=== PATIENT | female | born 1935 | race Caucasian/White ===

== ENCOUNTER 2017-09-12 14:28 | Emergency (ER) | payer OTHER ==
[~2017-09-12 14:28] MED LIST: ALD25 PO; ALDACTONE25 MG PO; B 6; COR6 PO; FISH OIL; FLUTICASON0.05 MG/Ac; GERITOL; GLU850 PO; LASIX20 MG PO; NITROGLYCERIN TD; NITROSTAT0.4 MG SL; PEPCID40 MG PO; PLA75 PO; PRO40 PO; VITAMIN E; ZES5 PO
[2017-09-12 17:09] VITALS: BP 131/66
== END 2017-09-12 17:09 | disposition home or self-care (01) ==
LOC: ED 14:28
DX: S22.41XA Multiple fractures of ribs, right side, initial encounter for closed fracture (principal); I11.0 Hypertensive heart disease with heart failure; I50.9 Heart failure, unspecified; I25.10 Atherosclerotic heart disease of native coronary artery without angina pectoris; I42.9 Cardiomyopathy, unspecified; K21.9 Gastro-esophageal reflux disease without esophagitis; E78.5 Hyperlipidemia, unspecified; M81.0 Age-related osteoporosis without current pathological fracture; G89.29 Other chronic pain; E11.9 Type 2 diabetes mellitus without complications; Z96.643 Presence of artificial hip joint, bilateral; Z87.19 Personal history of other diseases of the digestive system; Z88.6 Allergy status to analgesic agent; W01.0XXA Fall on same level from slipping, tripping and stumbling without subsequent striking against object, initial encounter; Y93.89 Activity, other specified; Y92.89 Other specified places as the place of occurrence of the external cause; Y99.8 Other external cause status

== ENCOUNTER 2017-10-25 08:11 | Inpatient (IN) | payer SELFPAY ==
[~2017-10-25] VITALS: Ht 154.9 cm; Wt 38.5 kg
[2017-10-25 08:15] VITALS: Ht 154.9 cm; Wt 38.5 kg
[2017-10-25 08:39] LABS: BASOPHIL % 1.5 % (0-2); PLATELET COUNT 257 x10^3mcL (130-400); RED CELL DISTRIBUTION WIDTH 14.2 % (11.5-14.5)
[2017-10-25 09:35] LABS: microscopic required? YES; urine erythrocyte TRACE (NEGATIVE)
[2017-10-25 09:42] LABS: ALKALINE PHOSPHATASE 121 U/L (46-116); ALT/SGPT 38 U/L (14-59); AST/SGOT 37 U/L (15-37); BILIRUBIN TOTAL 0.57 mg/dL (0.20-1.00); CARBON DIOXIDE 27.8 mmol/L (21-32); CHLORIDE SERUM 107 mmol/L (98-107); CHOLESTEROL 194 mg/dL (<200); CREATININE SERUM 0.7 mg/dL (0.6-1.0); GLUCOSE SERUM 129 mg/dL (74-106); POTASSIUM SERUM 4.5 mmol/L (3.5-5.1); SODIUM SERUM 143 mmol/L (136-145); TOTAL PROTEIN, SERUM 6.9 g/dL (6.4-8.2)
[2017-10-25 10:28] LABS: CHOLESTEROL/HDL RATIO 1.8; MAGNESIUM 2.4 mg/dL (1.8-2.4); PHOSPHOROUS 3.3 mg/dL (2.5-4.9)
[2017-10-25] MEDS ORDERED: TRAMADOL HCL50 MG PO (10:37)
[2017-10-25] MEDS ORDERED: OSCD PO (10:38)
[2017-10-25] MEDS ORDERED: CARVEDILOL3.125 M1 PO (10:39)
[2017-10-25] MEDS ORDERED: LEXAPRO5 M1 PO (10:39)
[2017-10-25] MEDS ORDERED: IBUPROFEN400 MG PO (10:39)
[2017-10-25 10:59] VITALS: BP 154/83
[2017-10-25 17:20] VITALS: BP 133/72
[2017-10-25 21:03] VITALS: BP 126/65
[2017-10-26 02:50] LABS: BASOPHIL % 1.1 % (0-2); PLATELET COUNT 240 x10^3mcL (130-400)
[2017-10-26 02:57] LABS: CALCIUM 8.6 mg/dL (8.5-10.1); CARBON DIOXIDE 25.8 mmol/L (21-32); CHLORIDE SERUM 108 mmol/L (98-107); CREATININE SERUM 0.7 mg/dL (0.6-1.0); GLUCOSE SERUM 108 mg/dL (74-106); PHOSPHOROUS 3.6 mg/dL (2.5-4.9); POTASSIUM SERUM 3.3 mmol/L (3.5-5.1); SODIUM SERUM 143 mmol/L (136-145)
[2017-10-26 03:01] LABS: RED CELL DISTRIBUTION WIDTH 14.7 % (11.5-14.5)
[2017-10-26 06:20] VITALS: BP 108/61
[2017-10-26 10:54] VITALS: BP 131/78
[2017-10-26 13:17] VITALS: BP 129/54
[2017-10-26 16:36] VITALS: BP 94/56
[2017-10-26 22:28] VITALS: BP 126/56
[2017-10-27 06:35] VITALS: BP 118/58
[2017-10-27 09:52] VITALS: BP 112/53
[2017-10-27] MEDS ORDERED: ZES10 PO (13:09)
[2017-10-27 13:10] VITALS: BP 126/68
[2017-10-27 13:11] VITALS: BP 126/68
[2017-10-27] MEDS ORDERED: PLA75 PO (15:27)
== END 2017-10-27 16:32 | disposition home or self-care (01) | DRG 305 ==
LOC: ED 08:11 → DU 10:13 → CMPBEDREQ 10:23 → DU 10:57 → MU 10-27 09:26
PROVIDERS: Family Medicine; Specialist
DX: I16.0 Hypertensive urgency (principal); I42.0 Dilated cardiomyopathy; G90.8 Other disorders of autonomic nervous system; Z88.6 Allergy status to analgesic agent; W07.XXXA Fall from chair, initial encounter; Y93.89 Activity, other specified; Y92.89 Other specified places as the place of occurrence of the external cause; Y99.8 Other external cause status; I11.0 Hypertensive heart disease with heart failure; I50.9 Heart failure, unspecified; E11.9 Type 2 diabetes mellitus without complications; K21.9 Gastro-esophageal reflux disease without esophagitis; E11.21 Type 2 diabetes mellitus with diabetic nephropathy; E11.65 Type 2 diabetes mellitus with hyperglycemia; E78.5 Hyperlipidemia, unspecified; M81.0 Age-related osteoporosis without current pathological fracture; Z96.643 Presence of artificial hip joint, bilateral; G89.29 Other chronic pain; M54.9 Dorsalgia, unspecified; Z90.49 Acquired absence of other specified parts of digestive tract; I25.10 Atherosclerotic heart disease of native coronary artery without angina pectoris; I44.7 Left bundle-branch block, unspecified; Z80.3 Family history of malignant neoplasm of breast; Z80.0 Family history of malignant neoplasm of digestive organs; E87.6 Hypokalemia; F32.9 Major depressive disorder, single episode, unspecified
CPT/HCPCS: 82962; 83880; 94150; G0480; J1644; J1940; Q0092

== ENCOUNTER 2017-11-11 13:21 | Inpatient (IN) | payer OTHER ==
[~2017-11-11] VITALS: Ht 154.9 cm; Wt 43.7 kg
[~2017-11-11 13:21] MED LIST changes: +CARVEDILOL3.125 M1 PO; +IBUPROFEN400 MG PO; +OSCD PO; +TRAMADOL HCL50 MG PO; +ZES10 PO
[2017-11-11 13:33] VITALS: Ht 154.9 cm; Wt 43.7 kg
[2017-11-11 14:12] LABS: BASOPHIL % 1.2 % (0-2); PLATELET COUNT 298 x10^3mcL (130-400)
[2017-11-11 14:13] LABS: RED CELL DISTRIBUTION WIDTH 14.6 % (11.5-14.5)
[2017-11-11 14:23] LABS: CALCIUM 8.7 mg/dL (8.5-10.1); CARBON DIOXIDE 26.1 mmol/L (21-32); CHLORIDE SERUM 105 mmol/L (98-107); CREATININE SERUM 0.8 mg/dL (0.6-1.0); GLUCOSE SERUM 164 mg/dL (74-106); POTASSIUM SERUM 3.8 mmol/L (3.5-5.1); SODIUM SERUM 140 mmol/L (136-145)
[2017-11-11 14:28] LABS: ALKALINE PHOSPHATASE 118 U/L (46-116); ALT/SGPT 34 U/L (14-59); AST/SGOT 36 U/L (15-37); BILIRUBIN TOTAL 0.87 mg/dL (0.20-1.00); TOTAL PROTEIN, SERUM 6.9 g/dL (6.4-8.2)
[2017-11-11 14:29] LABS: ALBUMIN 2.9 g/dL (3.4-5.0)
[2017-11-11 15:45] LABS: MAGNESIUM 2.2 mg/dL (1.8-2.4)
[2017-11-11 15:47] LABS: CHOLESTEROL/HDL RATIO 1.9
[2017-11-11 15:49] LABS: T3 TOTAL 0.87 ng/mL
[2017-11-11 15:58] LABS: FREE T4 1.19 ng/dL (0.76-1.46); FREE THYROXINE INDEX 2.3 ug/dL (1.4-4.5)
[2017-11-11 16:32] VITALS: BP 129/64
[2017-11-11 19:30] VITALS: BP 104/62
[2017-11-12 00:21] LABS: UA SPECIFIC GRAVITY 1.015 (1.005-1.035); microscopic required? YES; urine erythrocyte TRACE (NEGATIVE)
[2017-11-12 05:29] VITALS: BP 120/54
[2017-11-12 06:26] LABS: BASOPHIL % 0.7 % (0-2); PLATELET COUNT 233 x10^3mcL (130-400); RED CELL DISTRIBUTION WIDTH 14.5 % (11.5-14.5)
[2017-11-12 06:58] LABS: CALCIUM 8.4 mg/dL (8.5-10.1); CARBON DIOXIDE 24.2 mmol/L (21-32); CHLORIDE SERUM 109 mmol/L (98-107); CREATININE SERUM 0.6 mg/dL (0.6-1.0); GLUCOSE SERUM 117 mg/dL (74-106); POTASSIUM SERUM 3.7 mmol/L (3.5-5.1); SODIUM SERUM 142 mmol/L (136-145)
[2017-11-12 09:51] VITALS: BP 123/62
[2017-11-12 17:16] VITALS: BP 134/64
[2017-11-12 21:38] VITALS: BP 116/57
[2017-11-13 04:31] VITALS: BP 124/58
[2017-11-13 06:31] LABS: BASOPHIL % 0.5 % (0-2); PLATELET COUNT 234 x10^3mcL (130-400)
[2017-11-13 06:34] LABS: RED CELL DISTRIBUTION WIDTH 14.6 % (11.5-14.5)
[2017-11-13 06:50] LABS: CALCIUM 8.2 mg/dL (8.5-10.1); CARBON DIOXIDE 24.5 mmol/L (21-32); CHLORIDE SERUM 109 mmol/L (98-107); CREATININE SERUM 0.7 mg/dL (0.6-1.0); GLUCOSE SERUM 108 mg/dL (74-106); SODIUM SERUM 141 mmol/L (136-145)
[2017-11-13 16:51] VITALS: BP 119/64
[2017-11-13 21:41] VITALS: BP 121/60
[2017-11-14 05:00] VITALS: BP 117/67
[2017-11-14 06:23] LABS: BASOPHIL % 0.4 % (0-2); PLATELET COUNT 256 x10^3mcL (130-400); RED CELL DISTRIBUTION WIDTH 14.4 % (11.5-14.5)
[2017-11-14 06:39] LABS: CALCIUM 8.6 mg/dL (8.5-10.1); CARBON DIOXIDE 28.4 mmol/L (21-32); CHLORIDE SERUM 105 mmol/L (98-107); CREATININE SERUM 0.7 mg/dL (0.6-1.0); GLUCOSE SERUM 138 mg/dL (74-106); POTASSIUM SERUM 3.9 mmol/L (3.5-5.1); SODIUM SERUM 140 mmol/L (136-145)
[2017-11-14 09:11] VITALS: BP 108/54
[2017-11-14] MEDS ORDERED: COL100 PO (10:52)
[2017-11-14 14:58] VITALS: BP 108/54
[2017-11-14 17:03] VITALS: BP 131/69
== END 2017-11-14 17:21 | disposition home or self-care (01) | DRG 347 ==
LOC: ED 13:21 → DU 15:10 → MU 15:10 → DU 16:18 → MU 11-12 10:49
PROVIDERS: Emergency Medicine; Family Medicine; Surgery
PROC: 0T9B70Z Drainage of Bladder with Drainage Device, Via Natural or Artificial Opening (ICD-10-PCS; 2017-11-11)
PROC: 0DBP7ZZ Excision of Rectum, Via Natural or Artificial Opening (ICD-10-PCS; principal; 2017-11-13 08:00)
DX: K62.3 Rectal prolapse (principal); N17.0 Acute kidney failure with tubular necrosis; E44.0 Moderate protein-calorie malnutrition; Z68.1 Body mass index [BMI] 19.9 or less, adult; I13.0 Hypertensive heart and chronic kidney disease with heart failure and stage 1 through stage 4 chronic kidney disease, or unspecified chronic kidney disease; N13.30 Unspecified hydronephrosis; F32.9 Major depressive disorder, single episode, unspecified; I50.9 Heart failure, unspecified; I25.10 Atherosclerotic heart disease of native coronary artery without angina pectoris; K21.9 Gastro-esophageal reflux disease without esophagitis; E11.21 Type 2 diabetes mellitus with diabetic nephropathy; E78.5 Hyperlipidemia, unspecified; M81.0 Age-related osteoporosis without current pathological fracture; G89.29 Other chronic pain; M54.9 Dorsalgia, unspecified; Z96.643 Presence of artificial hip joint, bilateral; E11.65 Type 2 diabetes mellitus with hyperglycemia; Z53.29 Procedure and treatment not carried out because of patient's decision for other reasons; N18.9 Chronic kidney disease, unspecified; D25.9 Leiomyoma of uterus, unspecified; K44.9 Diaphragmatic hernia without obstruction or gangrene; K57.30 Diverticulosis of large intestine without perforation or abscess without bleeding; Z88.6 Allergy status to analgesic agent; Z80.3 Family history of malignant neoplasm of breast; Z80.0 Family history of malignant neoplasm of digestive organs
CPT/HCPCS: 82962; 83880; 84439; 94150; J0690; J2001; J2175; J2250; J3010; J3490; J7030; Q0092; Q9966; Q9967

== ENCOUNTER 2017-11-17 21:16 | Inpatient (IN) | payer OTHER ==
[~2017-11-17] VITALS: Ht 154.9 cm; Wt 44.2 kg
[~2017-11-17 21:16] MED LIST changes: +COL100 PO
[2017-11-17 23:30] LABS: BASOPHIL % 0.4 % (0-2); PLATELET COUNT 273 x10^3mcL (130-400); RED CELL DISTRIBUTION WIDTH 14.1 % (11.5-14.5)
[2017-11-17 23:39] LABS: CALCIUM 8.7 mg/dL (8.5-10.1); CARBON DIOXIDE 28.9 mmol/L (21-32); CHLORIDE SERUM 107 mmol/L (98-107); CREATININE SERUM 0.7 mg/dL (0.6-1.0); GLUCOSE SERUM 122 mg/dL (74-106); SODIUM SERUM 139 mmol/L (136-145)
[2017-11-17 23:47] LABS: ALKALINE PHOSPHATASE 121 U/L (46-116); ALT/SGPT 45 U/L (14-59); AST/SGOT 38 U/L (15-37); BILIRUBIN TOTAL 0.3 mg/dL (0.20-1.00); TOTAL PROTEIN, SERUM 6.7 g/dL (6.4-8.2)
[2017-11-18 00:48] LABS: UA SPECIFIC GRAVITY <=1.005 (1.005-1.035); microscopic required? YES; urine erythrocyte 2+ (NEGATIVE)
[2017-11-18 04:46] VITALS: BP 132/64
[2017-11-18] MEDS ORDERED: POTASSIUM CHLO20 ME1 PO (05:23)
[2017-11-18 06:21] LABS: PHOSPHOROUS 3.9 mg/dL (2.5-4.9)
[2017-11-18 06:28] LABS: FREE T4 1.22 ng/dL (0.76-1.46); FREE THYROXINE INDEX 3.2 ug/dL (1.4-4.5); T4(THYROXINE) 9.3 ug/dL (4.7-13.3)
[2017-11-18 06:45] LABS: T3 TOTAL 0.98 ng/mL
[2017-11-18 09:24] LABS: PLATELET COUNT 250 x10^3mcL (130-400); RED CELL DISTRIBUTION WIDTH 14.5 % (11.5-14.5)
[2017-11-18 09:27] VITALS: BP 113/52
[2017-11-18 09:50] LABS: CALCIUM 8.1 mg/dL (8.5-10.1); CARBON DIOXIDE 24.3 mmol/L (21-32); CHLORIDE SERUM 108 mmol/L (98-107); CREATININE SERUM 0.6 mg/dL (0.6-1.0); GLUCOSE SERUM 113 mg/dL (74-106); MAGNESIUM 1.9 mg/dL (1.8-2.4); POTASSIUM SERUM 3.9 mmol/L (3.5-5.1); SODIUM SERUM 140 mmol/L (136-145)
[2017-11-18 10:15] VITALS: Ht 154.9 cm; Wt 44.2 kg
[2017-11-18 12:44] VITALS: BP 113/52
[2017-11-18 13:15] VITALS: BP 145/65
[2017-11-18 17:37] VITALS: BP 117/66
[2017-11-18 20:49] VITALS: BP 106/54
[2017-11-19 06:14] VITALS: BP 115/60
[2017-11-19 06:34] LABS: BASOPHIL % 0.7 % (0-2); PLATELET COUNT 236 x10^3mcL (130-400); RED CELL DISTRIBUTION WIDTH 14.3 % (11.5-14.5)
[2017-11-19 06:46] LABS: CALCIUM 8.4 mg/dL (8.5-10.1); CARBON DIOXIDE 25.2 mmol/L (21-32); CHLORIDE SERUM 105 mmol/L (98-107); CREATININE SERUM 0.8 mg/dL (0.6-1.0); GLUCOSE SERUM 114 mg/dL (74-106); POTASSIUM SERUM 3.9 mmol/L (3.5-5.1); SODIUM SERUM 139 mmol/L (136-145)
[2017-11-19 09:09] VITALS: BP 111/56
[2017-11-19 12:58] VITALS: BP 121/69
[2017-11-19 16:41] VITALS: BP 106/56
[2017-11-19 21:49] VITALS: BP 116/54
[2017-11-20 05:33] VITALS: BP 112/49
[2017-11-20 07:30] LABS: CALCIUM 8.5 mg/dL (8.5-10.1); CARBON DIOXIDE 25.2 mmol/L (21-32); CHLORIDE SERUM 106 mmol/L (98-107); CREATININE SERUM 0.8 mg/dL (0.6-1.0); GLUCOSE SERUM 116 mg/dL (74-106); POTASSIUM SERUM 3.9 mmol/L (3.5-5.1); SODIUM SERUM 139 mmol/L (136-145)
[2017-11-20 07:36] LABS: BASOPHIL % 0.5 % (0-2); PLATELET COUNT 240 x10^3mcL (130-400); RED CELL DISTRIBUTION WIDTH 14.2 % (11.5-14.5)
[2017-11-20 09:44] VITALS: BP 104/50
[2017-11-20 14:11] VITALS: BP 137/63
[2017-11-20 17:28] VITALS: BP 143/75
[2017-11-20 21:32] VITALS: BP 138/63
[2017-11-21 05:23] VITALS: BP 143/65
[2017-11-21 06:47] LABS: BASOPHIL % 0.6 % (0-2); PLATELET COUNT 263 x10^3mcL (130-400); RED CELL DISTRIBUTION WIDTH 14.5 % (11.5-14.5)
[2017-11-21 06:52] LABS: CALCIUM 8.4 mg/dL (8.5-10.1); CARBON DIOXIDE 22.2 mmol/L (21-32); CHLORIDE SERUM 105 mmol/L (98-107); CREATININE SERUM 0.7 mg/dL (0.6-1.0); GLUCOSE SERUM 211 mg/dL (74-106); POTASSIUM SERUM 4.2 mmol/L (3.5-5.1); SODIUM SERUM 137 mmol/L (136-145)
[2017-11-21] MEDS ORDERED: LEVAQUIN750 MG PO (07:17)
[2017-11-21] MEDS ORDERED: CLEOCIN HCL300 MG PO (07:17)
[2017-11-21] MEDS ORDERED: LAC PO (07:18)
[2017-11-21] MEDS ORDERED: LEXAPRO20 MG PO (07:19)
[2017-11-21 09:50] VITALS: BP 143/65
[2017-11-21 09:55] VITALS: BP 122/60
[2017-11-21 13:56] VITALS: BP 117/63
[2017-11-21] MEDS ORDERED: LEXAPRO5 M1 PO (14:59)
== END 2017-11-21 19:26 | disposition home health service (06) | DRG 177 ==
LOC: ED 21:16 → DU 11-18 03:45 → EDBEDREQ 11-18 03:57 → DU 11-18 04:31
PROVIDERS: Emergency Medicine; Family Medicine Sports Medicine
DX: J69.0 Pneumonitis due to inhalation of food and vomit (principal); I50.43 Acute on chronic combined systolic (congestive) and diastolic (congestive) heart failure; N17.0 Acute kidney failure with tubular necrosis; I42.0 Dilated cardiomyopathy; E44.0 Moderate protein-calorie malnutrition; Z68.1 Body mass index [BMI] 19.9 or less, adult; K21.9 Gastro-esophageal reflux disease without esophagitis; E86.0 Dehydration; I11.0 Hypertensive heart disease with heart failure; F41.9 Anxiety disorder, unspecified; Z96.653 Presence of artificial knee joint, bilateral; Z53.29 Procedure and treatment not carried out because of patient's decision for other reasons; E11.65 Type 2 diabetes mellitus with hyperglycemia; I34.0 Nonrheumatic mitral (valve) insufficiency; K44.9 Diaphragmatic hernia without obstruction or gangrene; D25.9 Leiomyoma of uterus, unspecified; F32.9 Major depressive disorder, single episode, unspecified; M47.9 Spondylosis, unspecified; E11.9 Type 2 diabetes mellitus without complications; R31.9 Hematuria, unspecified; G89.29 Other chronic pain; Z90.49 Acquired absence of other specified parts of digestive tract; Z88.6 Allergy status to analgesic agent; Z80.3 Family history of malignant neoplasm of breast; Z80.0 Family history of malignant neoplasm of digestive organs
CPT/HCPCS: 82962; 83880; 84439; 94150; 97110-GP; 97116-GP; 97530-GP; J1885; J1956; J2405; J3490; J7030; J7040; J7620; J7626; Q0092

== ENCOUNTER 2018-02-09 14:56 | Emergency (ER) | payer OTHER ==
[~2018-02-09] VITALS: Ht 147.3 cm; Wt 41.0 kg
[~2018-02-09 14:56] MED LIST changes: +CLEOCIN HCL300 MG PO; +LAC PO; +LEVAQUIN750 MG PO; +LEXAPRO20 MG PO; +LEXAPRO5 M1 PO; +POTASSIUM CHLO20 ME1 PO
[2018-02-09 15:03] VITALS: Ht 147.3 cm; Wt 41.0 kg
[2018-02-09 15:56] LABS: BASOPHIL % 0.9 % (0-2); PLATELET COUNT 239 x10^3mcL (130-400); RED CELL DISTRIBUTION WIDTH 14.1 % (11.5-14.5)
[2018-02-09 16:02] LABS: CALCIUM 8.9 mg/dL (8.5-10.1); CARBON DIOXIDE 26.8 mmol/L (21-32); CHLORIDE SERUM 106 mmol/L (98-107); CREATININE SERUM 0.9 mg/dL (0.6-1.0); GLUCOSE SERUM 240 mg/dL (74-106); POTASSIUM SERUM 3.9 mmol/L (3.5-5.1); SODIUM SERUM 141 mmol/L (136-145)
[2018-02-09 18:58] VITALS: BP 138/85
== END 2018-02-09 18:56 | disposition home or self-care (01) ==
LOC: ED 14:56
PROVIDERS: Emergency Medicine
DX: S06.890A Other specified intracranial injury without loss of consciousness, initial encounter (principal); I11.0 Hypertensive heart disease with heart failure; I50.9 Heart failure, unspecified; K21.9 Gastro-esophageal reflux disease without esophagitis; E11.21 Type 2 diabetes mellitus with diabetic nephropathy; M81.0 Age-related osteoporosis without current pathological fracture; Z88.8 Allergy status to other drugs, medicaments and biological substances; Z90.49 Acquired absence of other specified parts of digestive tract; W18.39XA Other fall on same level, initial encounter; Y93.89 Activity, other specified; Y92.89 Other specified places as the place of occurrence of the external cause; Y99.8 Other external cause status
CPT/HCPCS: 36415; 83880; Q0092

== ENCOUNTER 2018-06-27 21:05 | Inpatient (IN) | payer OTHER ==
[~2018-06-27] VITALS: Ht 147.3 cm; Wt 40.4 kg
[2018-06-27 21:08] VITALS: Ht 147.3 cm; Wt 40.4 kg
[2018-06-27 22:04] LABS: BASOPHIL % 0.7 % (0-2); PLATELET COUNT 204 x10^3mcL (130-400); RED CELL DISTRIBUTION WIDTH 14.4 % (11.5-14.5)
[2018-06-27 22:13] LABS: CALCIUM 8.6 mg/dL (8.5-10.1); CHLORIDE SERUM 107 mmol/L (98-107); CREATININE SERUM 0.6 mg/dL (0.6-1.0); GLUCOSE SERUM 153 mg/dL (74-106); POTASSIUM SERUM 3.9 mmol/L (3.5-5.1); SODIUM SERUM 139 mmol/L (136-145)
[2018-06-27 22:17] LABS: ALKALINE PHOSPHATASE 105 U/L (46-116); ALT/SGPT 34 U/L (14-59); AST/SGOT 29 U/L (15-37); BILIRUBIN TOTAL 0.2 mg/dL (0.20-1.00); TOTAL PROTEIN, SERUM 6.3 g/dL (6.4-8.2)
[2018-06-27 22:18] LABS: ALBUMIN 2.9 g/dL (3.4-5.0)
[2018-06-27 23:40] LABS: AMPHETAMINE QUAL UR NONE DETECTED (See below)
[2018-06-28 00:19] LABS: PHOSPHOROUS 3.8 mg/dL (2.5-4.9)
[2018-06-28 00:22] LABS: CHOLESTEROL/HDL RATIO 2.3
[2018-06-28 00:24] LABS: T3 TOTAL 0.95 ng/mL
[2018-06-28 00:29] LABS: FREE T4 1.05 ng/dL (0.76-1.46); FREE THYROXINE INDEX 2.6 ug/dL (1.4-4.5); T4(THYROXINE) 7.3 ug/dL (4.7-13.3)
[2018-06-28 00:54] VITALS: BP 134/62
[2018-06-28 01:54] LABS: microscopic required? NO
[2018-06-28 02:05] LABS: urine erythrocyte NEGATIVE (NEGATIVE)
[2018-06-28 03:35] VITALS: BP 134/62
[2018-06-28 04:57] VITALS: BP 126/55
[2018-06-28 07:11] LABS: CALCIUM 8.7 mg/dL (8.5-10.1); CARBON DIOXIDE 28.1 mmol/L (21-32); CHLORIDE SERUM 108 mmol/L (98-107); CREATININE SERUM 0.7 mg/dL (0.6-1.0); GLUCOSE SERUM 113 mg/dL (74-106); POTASSIUM SERUM 4.1 mmol/L (3.5-5.1); SODIUM SERUM 142 mmol/L (136-145)
[2018-06-28 07:26] LABS: BASOPHIL % 0.6 % (0-2); PLATELET COUNT 209 x10^3mcL (130-400); RED CELL DISTRIBUTION WIDTH 14.4 % (11.5-14.5)
[2018-06-28 09:18] VITALS: BP 131/57
[2018-06-28 12:48] VITALS: BP 143/77
[2018-06-28 13:49] VITALS: BP 143/77
== END 2018-06-28 15:20 | disposition home or self-care (01) | DRG 73 ==
LOC: ED 21:05 → MU 23:11 → DU 06-28 04:15
PROVIDERS: Emergency Medicine; Family Medicine
DX: G90.9 Disorder of the autonomic nervous system, unspecified (principal); N17.0 Acute kidney failure with tubular necrosis; D68.59 Other primary thrombophilia; E44.0 Moderate protein-calorie malnutrition; I87.2 Venous insufficiency (chronic) (peripheral); E11.65 Type 2 diabetes mellitus with hyperglycemia; I10 Essential (primary) hypertension; I25.2 Old myocardial infarction; F20.9 Schizophrenia, unspecified; Z86.73 Personal history of transient ischemic attack (TIA), and cerebral infarction without residual deficits
CPT/HCPCS: 82962; 83880; 84439; 94150; J0696; J1940; J2405; J3010; J7030; J7620; Q0092

== ENCOUNTER 2019-03-28 13:44 | Emergency (ER) | payer OTHER ==
[~2019-03-28] VITALS: Ht 147.3 cm; Wt 38.6 kg
[2019-03-28 13:49] VITALS: Ht 147.3 cm; Wt 38.6 kg
[2019-03-28 15:27] LABS: CALCIUM 8.9 mg/dL (8.5-10.1); CARBON DIOXIDE 22.8 mmol/L (21-32); CHLORIDE SERUM 112 mmol/L (98-107); CREATININE SERUM 0.7 mg/dL (0.6-1.0); GLUCOSE SERUM 134 mg/dL (74-106); POTASSIUM SERUM 3.6 mmol/L (3.5-5.1); SODIUM SERUM 146 mmol/L (136-145)
[2019-03-28 15:30] LABS: BASOPHIL % 0.7 % (0-2); PLATELET COUNT 266 x10^3mcL (130-400); RED CELL DISTRIBUTION WIDTH 14.4 % (11.5-14.5)
[2019-03-28 15:35] LABS: ALKALINE PHOSPHATASE 108 U/L (46-116); ALT/SGPT 20 U/L (14-59); AST/SGOT 14 U/L (15-37); BILIRUBIN TOTAL 0.17 mg/dL (0.20-1.00)
[2019-03-28 15:42] LABS: ALBUMIN 2.6 g/dL (3.4-5.0)
[2019-03-28 17:24] VITALS: BP 145/61
== END 2019-03-28 17:47 | disposition short-term general hospital (02) ==
LOC: ED 13:44
PROVIDERS: Emergency Medicine
DX: S06.5X9A Traumatic subdural hemorrhage with loss of consciousness of unspecified duration, initial encounter (principal); S39.012A Strain of muscle, fascia and tendon of lower back, initial encounter; I11.0 Hypertensive heart disease with heart failure; I50.9 Heart failure, unspecified; E11.9 Type 2 diabetes mellitus without complications; Z98.890 Other specified postprocedural states; W19.XXXA Unspecified fall, initial encounter; Y93.89 Activity, other specified; Y92.89 Other specified places as the place of occurrence of the external cause; Y99.8 Other external cause status
CPT/HCPCS: J2270; J2405; Q0092

== ENCOUNTER 2019-08-21 15:51 | Emergency (ER) | payer OTHER ==
[2019-08-21 17:02] LABS: BASOPHIL % 0.5 % (0-2); PLATELET COUNT 321 x10^3mcL (130-400)
[2019-08-21 17:03] LABS: RED CELL DISTRIBUTION WIDTH 15.4 % (11.5-14.5)
[2019-08-21 17:34] LABS: CALCIUM 8.8 mg/dL (8.5-10.1); CARBON DIOXIDE 28.6 mmol/L (21-32); CHLORIDE SERUM 106 mmol/L (98-107); CREATININE SERUM 0.7 mg/dL (0.6-1.0); GLUCOSE SERUM 115 mg/dL (74-106); POTASSIUM SERUM 3.7 mmol/L (3.5-5.1); SODIUM SERUM 141 mmol/L (136-145)
[2019-08-21 17:38] LABS: ALKALINE PHOSPHATASE 91 U/L (46-116); ALT/SGPT 26 U/L (14-59); AST/SGOT 21 U/L (15-37); BILIRUBIN TOTAL 0.3 mg/dL (0.20-1.00); TOTAL PROTEIN, SERUM 6.8 g/dL (6.4-8.2)
[2019-08-21 18:36] VITALS: BP 127/67
== END 2019-08-21 18:36 | disposition home or self-care (01) ==
LOC: ED 15:51
PROVIDERS: Emergency Medicine
DX: S00.83XA Contusion of other part of head, initial encounter (principal); S09.8XXA Other specified injuries of head, initial encounter; I50.9 Heart failure, unspecified; I11.0 Hypertensive heart disease with heart failure; E11.9 Type 2 diabetes mellitus without complications; K21.9 Gastro-esophageal reflux disease without esophagitis; M81.0 Age-related osteoporosis without current pathological fracture; W18.30XA Fall on same level, unspecified, initial encounter; Y93.89 Activity, other specified; Y92.89 Other specified places as the place of occurrence of the external cause; Y99.8 Other external cause status
CPT/HCPCS: 36415; Q0092

== ENCOUNTER 2019-10-18 19:18 | Emergency (ER) | payer OTHER ==
[~2019-10-18] VITALS: Ht 147.3 cm; Wt 40.8 kg
[2019-10-18 19:42] VITALS: Ht 147.3 cm; Wt 40.8 kg
[2019-10-18 20:34] LABS: BASOPHIL % 0.5 % (0-2); PLATELET COUNT 229 x10^3mcL (130-400); RED CELL DISTRIBUTION WIDTH 14.8 % (11.5-14.5)
[2019-10-18 20:47] LABS: CALCIUM 8.5 mg/dL (8.5-10.1); CARBON DIOXIDE 24.4 mmol/L (21-32); CHLORIDE SERUM 110 mmol/L (98-107); CREATININE SERUM 0.7 mg/dL (0.6-1.0); GLUCOSE SERUM 114 mg/dL (74-106); POTASSIUM SERUM 3.5 mmol/L (3.5-5.1); SODIUM SERUM 144 mmol/L (136-145)
[2019-10-18 20:52] LABS: ALKALINE PHOSPHATASE 85 U/L (46-116); ALT/SGPT 23 U/L (14-59); AST/SGOT 20 U/L (15-37); BILIRUBIN TOTAL 0.37 mg/dL (0.20-1.00); TOTAL PROTEIN, SERUM 6.5 g/dL (6.4-8.2)
[2019-10-18 23:57] VITALS: BP 132/81
== END 2019-10-18 23:57 | disposition home or self-care (01) ==
LOC: ED 19:18
PROVIDERS: Emergency Medicine
DX: R51 Headache (principal); R53.1 Weakness; M54.5 Low back pain; Z88.6 Allergy status to analgesic agent; I50.9 Heart failure, unspecified; I11.0 Hypertensive heart disease with heart failure; E11.9 Type 2 diabetes mellitus without complications; K21.9 Gastro-esophageal reflux disease without esophagitis; E11.21 Type 2 diabetes mellitus with diabetic nephropathy; M81.0 Age-related osteoporosis without current pathological fracture; Z90.49 Acquired absence of other specified parts of digestive tract; Z98.890 Other specified postprocedural states
CPT/HCPCS: 36415; Q0092

== ENCOUNTER 2020-01-13 14:25 | Inpatient (IN) | payer OTHER, SELFPAY ==
[~2020-01-13] VITALS: Ht 162.6 cm; Wt 43.5 kg
[~2020-01-13 14:25] MED LIST changes: +L20 PO
[2020-01-13 14:28] VITALS: Ht 162.6 cm; Wt 43.5 kg
[2020-01-13 15:06] LABS: BASOPHIL % 0.6 % (0-2); PLATELET COUNT 283 x10^3mcL (130-400); RED CELL DISTRIBUTION WIDTH 13.7 % (11.5-14.5)
[2020-01-13 15:41] LABS: CALCIUM 8.6 mg/dL (8.5-10.1); CARBON DIOXIDE 22.8 mmol/L (21-32); CHLORIDE SERUM 104 mmol/L (98-107); CREATININE SERUM 0.9 mg/dL (0.6-1.0); GLUCOSE SERUM 195 mg/dL (74-106); POTASSIUM SERUM 3.8 mmol/L (3.5-5.1); SODIUM SERUM 136 mmol/L (136-145)
[2020-01-13 15:52] LABS: T3 TOTAL 0.92 ng/mL
[2020-01-13 15:56] LABS: ALKALINE PHOSPHATASE 82 U/L (46-116); ALT/SGPT 19 U/L (14-59); AST/SGOT 20 U/L (15-37); BILIRUBIN TOTAL 0.19 mg/dL (0.20-1.00); CHOLESTEROL 197 mg/dL (<200); CHOLESTEROL/HDL RATIO 3.3; HDL CHOLESTEROL 60 mg/dL (40-60); LIPASE 134 IU/L (73-393); TRIGLYCERIDES 137 mg/dL (<150)
[2020-01-13 16:02] LABS: ALBUMIN 2.9 g/dL (3.4-5.0)
[2020-01-13 16:23] LABS: microscopic required? NO
[2020-01-13 16:24] LABS: FREE T4 1.12 ng/dL (0.76-1.46); FREE THYROXINE INDEX 2.4 ug/dL (1.4-4.5); T4(THYROXINE) 6.9 ug/dL (4.7-13.3)
[2020-01-13 16:28] LABS: LACTIC DEHYDROGENASE (LDH) 208 U/L (100-190)
[2020-01-13 16:29] LABS: urine erythrocyte NEGATIVE (NEGATIVE)
[2020-01-13 16:48] LABS: C REACTIVE PROTEIN < 0.2 mg/dL (<=0.9)
[2020-01-13 17:56] LABS: MAGNESIUM 1.9 mg/dL (1.8-2.4); PHOSPHOROUS 3.2 mg/dL (2.5-4.9)
[2020-01-13 19:41] VITALS: BP 131/72
[2020-01-14 06:00] VITALS: BP 133/82
[2020-01-14 07:03] LABS: PLATELET COUNT 272 x10^3mcL (130-400); RED CELL DISTRIBUTION WIDTH 13.6 % (11.5-14.5)
[2020-01-14 07:11] LABS: CALCIUM 8.4 mg/dL (8.5-10.1); CARBON DIOXIDE 22.5 mmol/L (21-32); CHLORIDE SERUM 109 mmol/L (98-107); CREATININE SERUM 0.7 mg/dL (0.6-1.0); GLUCOSE SERUM 119 mg/dL (74-106); MAGNESIUM 1.7 mg/dL (1.8-2.4); PHOSPHOROUS 3.2 mg/dL (2.5-4.9); SODIUM SERUM 140 mmol/L (136-145)
[2020-01-14 12:32] VITALS: BP 164/83
[2020-01-14 17:56] VITALS: BP 134/83
[2020-01-15 06:47] VITALS: BP 155/73
[2020-01-15 08:10] VITALS: BP 98/56
[2020-01-15] MEDS ORDERED: L20 PO (10:10)
[2020-01-15] MEDS ORDERED: LIPI10 PO (10:10)
[2020-01-15] MEDS ORDERED: ZES10 PO (10:10)
[2020-01-15] MEDS ORDERED: RIS0.25 PO (10:11)
[2020-01-15] MEDS ORDERED: ISOSORBIDE30 M1 PO (10:11)
[2020-01-15 12:15] VITALS: BP 130/73
[2020-01-15 14:48] VITALS: BP 130/73
== END 2020-01-15 16:16 | DRG 391 ==
LOC: ED 14:25 → DU 17:17 → MU 01-14 14:29 → DU 01-14 23:37
PROVIDERS: Specialist; ADMIT Family Medicine
DX: K21.9 Gastro-esophageal reflux disease without esophagitis (principal); N17.0 Acute kidney failure with tubular necrosis; E43 Unspecified severe protein-calorie malnutrition; I42.9 Cardiomyopathy, unspecified; I50.22 Chronic systolic (congestive) heart failure; Z68.1 Body mass index [BMI] 19.9 or less, adult; M94.0 Chondrocostal junction syndrome [Tietze]; E11.65 Type 2 diabetes mellitus with hyperglycemia; Z20.828 Contact with and (suspected) exposure to other viral communicable diseases; Z88.6 Allergy status to analgesic agent; I11.0 Hypertensive heart disease with heart failure; I25.10 Atherosclerotic heart disease of native coronary artery without angina pectoris; E78.5 Hyperlipidemia, unspecified; M81.0 Age-related osteoporosis without current pathological fracture; F20.9 Schizophrenia, unspecified; Z79.899 Other long term (current) drug therapy; Z80.3 Family history of malignant neoplasm of breast; Z80.0 Family history of malignant neoplasm of digestive organs; I44.7 Left bundle-branch block, unspecified
CPT/HCPCS: 36600; 82962; 83880; 84439; 87804; 97112-GP; G0378; J1630; J7030; Q0092